=== PATIENT | female | born 1990 | race African-American/Black ===

== ENCOUNTER 2019-06-04 14:56 | Emergency (ER) | payer OTHER ==
[~2019-06-04] VITALS: Ht 162.6 cm; Wt 86.2 kg
[2019-06-04] MEDS ORDERED: PRENATAL PO (15:32)
[2019-06-04 18:57] VITALS: BP 130/84
== END 2019-06-04 16:15 | disposition home or self-care (01) ==
LOC: ER 14:56
DX: Z53.21 Procedure and treatment not carried out due to patient leaving prior to being seen by health care provider (principal)